=== PATIENT | male | born 1970 | race African-American/Black ===

== ENCOUNTER 2023-09-20 15:49 | Emergency (ER) | payer BC, SELFPAY ==
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
[2023-09-20] MEDS: IBUPROFEN 600 MG TABLET PO (17:52)
[2023-09-20] MEDS: ACETAMINOPHEN 325 MG TABLET 650 MG PO (17:52)
== END 2023-09-20 18:57 | disposition home or self-care (01) ==
PROVIDERS: Emergency Provider Physician Assistant
DX: S39.92XA Unspecified injury of lower back, initial encounter (principal); S79.912A Unspecified injury of left hip, initial encounter; V43.52XA Car driver injured in collision with other type car in traffic accident, initial encounter
CPT/HCPCS: 72131; 73502; 99284; A9270